=== PATIENT | female | born 1960 | race Caucasian/White ===

== ENCOUNTER 2018-07-23 19:52 | Emergency (ER) | payer OTHER, SELFPAY ==
[2018-07-23 19:59] VITALS: BP 104/82; PULSE 64; RESP 16; TEMP 36.7; O2SAT 97
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
== END 2018-07-23 20:35 | disposition home or self-care (01) ==
PROVIDERS: Emergency Provider Emergency Medicine
DX: S01.21XA Laceration without foreign body of nose, initial encounter (principal); W22.8XXA Striking against or struck by other objects, initial encounter
CPT/HCPCS: 12011